=== PATIENT | male | born 1950 | race Caucasian/White ===

== ENCOUNTER → 2018-12-12 15:46 | Outpatient (CLI) | payer MEDICARE, SELFPAY ==
--- NOTE | 2018-12-12 | DI.RAD.S_ITS ---
PROCEDURE: XR HAND LT MIN 3V INDICATIONS: LEFT HAND PAIN TECHNIQUE: 3 views of the hand(s) acquired. COMPARISON: None. FINDINGS: Bones: No fractures or dislocations. Carpal bones are normally aligned. No suspicious bony lesions. There is mild osteoarthritic changes at the triscaphe joint, the first carpometacarpal joint, the first metacarpophalangeal joint and several interphalangeal joints. Soft tissues: No suspicious soft tissue calcifications. IMPRESSION: Mild osteoarthritis. Dictated by: Amanda Claire M.D. on 12/12/2018 at 17:32 Approved by: Amanda Claire M.D. on 12/12/2018 at 17:33
--- NOTE | 2018-12-12 | DI.RAD.S_ITS ---
PROCEDURE: XR SHOULDER LT MIN 2V INDICATIONS: LEFT SHOULDER PAIN TECHNIQUE: 3 views of the shoulder were acquired. COMPARISON: [facility], CR, XR SHOULDER RT MIN 2V, 12/12/2018, 15:59. None. FINDINGS: Bones: No acute fractures or dislocations. No suspicious bony lesions. There is severe glenohumeral joint and mild acromioclavicular joint degeneration. Visualized ribs appear intact. Soft tissues: No suspicious soft tissue calcifications. IMPRESSION: Degenerative joint disease, severe at the glenohumeral joint. Dictated by: Amanda Claire M.D. on 12/12/2018 at 17:22 Approved by: Amanda Claire M.D. on 12/12/2018 at 17:24
--- NOTE | 2018-12-12 | DI.RAD.S_ITS ---
PROCEDURE: XR SHOULDER RT MIN 2V INDICATIONS: RIGHT SHOULDER PAIN TECHNIQUE: 3 views of the shoulder were acquired. COMPARISON: None. FINDINGS: Bones: No fractures or dislocations. No suspicious bony lesions. There is severe glenohumeral joint and moderate acromioclavicular joint degeneration. Visualized ribs appear intact. Soft tissues: A ossicle is noted in the shoulder area, which may be a large intra-articular body IMPRESSION: 1. Severe degenerative joint disease of the glenohumeral joint and moderate degenerative joint disease of the acromioclavicular joint. 2. Suspected a large intra-articular body. If clinical symptoms persist, MRI is suggested for further evaluation. Dictated by: Amanda Claire M.D. on 12/12/2018 at 17:24 Approved by: Amanda Claire M.D. on 12/12/2018 at 17:27
--- NOTE | 2018-12-12 | DI.RAD.S_ITS ---
PROCEDURE: XR CERVICAL SPINE 4V OR 5V INDICATIONS: CERVICALGIA TECHNIQUE: 5 views of the cervical spine acquired. COMPARISON: None. FINDINGS: Bones: No fractures or dislocations to the T1 level. There is [id number] degenerative disc disease at C3-C4, C4-C5, C5-C6 and C6-C7. There is facet arthropathy bilaterally, most pronounced and severe at C2-C3 and C3-C4 on the right. Oblique images demonstrate multilevel foraminal stenoses C 3-C4, C4-C5, C5-C6 and C6-C7 bilaterally. Soft tissues: No prevertebral soft tissue swelling. IMPRESSION: 1. 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 2. Multilevel foraminal stenoses in cervical spine. If clinical symptoms persist or clinical suspicion for nerve root impingement is high, MRI is suggested for further evaluation. Dictated by: Amanda Claire M.D. on 12/12/2018 at 17:17 Approved by: Amanda Claire M.D. on 12/12/2018 at 17:19
== END ==
PROVIDERS: PCP Student in an Organized Health Care Education/Training Program; Visit Provider Student in an Organized Health Care Education/Training Program
DX: M25.511 Pain in right shoulder (principal); M25.512 Pain in left shoulder; M50.31 Other cervical disc degeneration, high cervical region; M48.02 Spinal stenosis, cervical region; M47.812 Spondylosis without myelopathy or radiculopathy, cervical region; M19.012 Primary osteoarthritis, left shoulder; M19.011 Primary osteoarthritis, right shoulder; M19.042 Primary osteoarthritis, left hand
CPT/HCPCS: 72050; 73030; 73130

== ENCOUNTER → 2019-07-16 14:55 | Outpatient (CLI) | payer MEDICARE, SELFPAY ==
--- NOTE | 2019-07-16 | DI.ECHO.S_ITS ---
[facility] +---------+ : : [address] : : : : [id number] : : : : Phone: [phone]+ Echocardiogram Report + + :Name: MITUL CARPIO Study Date: 07/16/2019 Height: 68 in : :[facility] Exam Location: IS Weight: 146 lb : : Gender: Male BSA: 1.8 m2 : :: 1950 Age: 68 yrs BP: 114/65 mmHg: :Reason For Study: MVP : : Performed By: Shashi Cortes : :Referring: PRESTON POTTER : + + Interpretation Summary 1) Upper normal left ventricular size with normal wall motion, and normal systolic function (EF 60-65%). 2) Normal right ventricular size and function. 3) The left atrium is severely dilated. 4) There is prolapse of the posterior mitral valve leaflet(s). 5) Severe eccentric mitral regurgitation that is directed anteriorly. 6) The right ventricular systolic pressure is estimated to be at least 22 mmHg based on an estimated right atrial pressure of 3 mm Hg. 7) Compared to the Echo done 12/30/2018, no significant change. Procedure: A two-dimensional transthoracic echocardiogram with color flow and Doppler was performed. The study quality was technically good. Comparison is made with the echocardiogram of 2/18/19. The patient was in normal sinus rhythm during the exam. The patient experienced a run of tachycardia during the exam with a heart rate in the 120s. Left Ventricle: There is normal left ventricular wall thickness. The left ventricle is mildly dilated. The ejection fraction is estimated to be 60-65%. There are no focal wall motion abnormalities. Right Ventricle: The right ventricle is normal in size and function. Atria: The left atrium is severely dilated. The right atrium is mildly dilated. The interatrial septum is intact with no evidence for an atrial septal defect. Mitral Valve: The mitral valve leaflets appear mildly thickened, but open well. There is prolapse of the posterior mitral valve leaflet(s). There is severe mitral regurgitation. The mitral regurgitant jet is eccentrically directed. Flow reversal noted in pulmonary veins consistent with significant mitral regurgitation. Aortic Valve: The aortic valve is trileaflet. The aortic valve opens well. There is no aortic valve stenosis. There is trace aortic regurgitation. Tricuspid Valve: The tricuspid valve is normal in structure and function. There is trace tricuspid regurgitation. The right ventricular systolic pressure is estimated to be at least 22 mmHg based on an estimated right atrial pressure of 3 mm Hg. Pulmonic Valve: The pulmonic valve is normal in structure and function. There is trace pulmonic regurgitation. Great Vessels: The aortic root is normal size. The dimensions of the ascending aorta are normal. The pulmonary artery is normal size. Pericardium/ Pleura There is no pericardial effusion. There is no pleural effusion. MMode/2D Measurements & Calculations LVIDd: 5.8 cm LVOT diam: 2.2 cm LVIDs: 3.6 cm Ao root diam: 3.4 cm FS: 38.0 % Aortic Jxn: 2.9 cm EPSS: 0.59 cm asc Aorta Diam: 3.8 cm IVSd: 0.89 cm Ao Arch Diam (Prox Trans): 2.9 cm LVPWd: 0.83 cm LV fuentes. diameter/BSA (cm/m^2): 3.3 LV sys. diameter/BSA (cm/m^2): 2.0 LA dimension: 4.6 cm RA long axis: 5.3 cm LA A2 area: 37.2 cm2 RA area: 20.6 cm2 LA A4 area: 33.7 cm2 RA vol: 68.3 ml LA length (vol): 7.4 cm RA : 38.2 ml/m2 LA vol: 144.8 ml IVC diam: 1.8 cm LA vol index: 81.0 ml/m2 Doppler Measurements & Calculations Ao V2 max: 138.1 cm/sec LVOT Max Phani: 106.9 cm/sec Ao V2 mean: 86.8 cm/sec LV V1 max P.6 mmHg Ao max P.6 mmHg LV V1 VTI: 22.0 cm Ao mean P.7 mmHg PILI(I,D): 3.1 cm2 Ao V2 VTI: 27.0 cm PILI(V,D): 2.9 cm2 sev ratio: 0.81 PILI indexed to BSA (cm^2/m^2): 1.7 MV E max phani: 78.9 cm/sec TR max phani: 218.8 cm/sec MV A max phani: 39.7 cm/sec TR max P.1 mmHg MV E/A: 2.0 PA V2 max: 58.1 cm/sec Med Peak E' Phani: 6.3 cm/sec PA V2 mean: 44.7 cm/sec E/E' med: 12.5 PA mean P.85 mmHg Lat Peak E' Phani: 4.6 cm/sec PA pr(Accel): 21.6 mmHg E/E' lat: 17.0 PA Accel Time: 0.11 sec E/e' average: 14.8 MV dec time: 0.20 sec SV([facility]): 82.7 ml Reading Physician:10:38 AM
== END ==
PROVIDERS: Family Provider Student in an Organized Health Care Education/Training Program; PCP Student in an Organized Health Care Education/Training Program; Visit Provider Internal Medicine Cardiovascular Disease
DX: I34.1 Nonrheumatic mitral (valve) prolapse (principal); I34.0 Nonrheumatic mitral (valve) insufficiency
CPT/HCPCS: 93306

== ENCOUNTER → 2020-01-20 14:44 | Outpatient (CLI) | payer MEDICARE, SELFPAY ==
--- NOTE | 2020-01-20 | DI.ECHO.S_ITS ---
[facility]---------+ [facility] +---------+ : : [address] : : : : [id number] : : : : Phone: [phone]+ Echocardiogram Report + + :Name: MITUL CARPIO Study Date: 01/20/2020 Height: 68 in : :[facility] Weight: 149 lb : : Gender: Male BSA: 1.8 m2 : :: 1950 Age: 69 yrs BP: 138/80 mmHg: :Reason For Study: Mitral Insufficiency : :Ordering Physician: Preston Segura : :[place] Performed By: Mara Gleason : :Referring: PRESTON POTTER : + + Interpretation Summary 1) Upper normal left ventricular size with normal wall motion, and normal systolic function (EF 60-65%). 2) Normal right ventricular size and function. 3) The left atrium is severely dilated. 4) There is prolapse of the posterior mitral valve leaflet(s). 5) Severe eccentric mitral regurgitation that is directed anteriorly. 6) The right ventricular systolic pressure is estimated to be at least 35 mmHg based on an estimated right atrial pressure of 3 mm Hg. 7) Compared to the Echo done 07/16/2019, mild pulmonary hypertension is present on this study. Procedure: A two-dimensional transthoracic echocardiogram with color flow and Doppler was performed. The study quality was technically adequate. Comparison is made with the echocardiogram of 07/16/2019. The patient was in normal sinus rhythm during the exam. Left Ventricle: The left ventricle is normal in size and wall thickness. The ejection fraction is estimated to be 60-65%. Left ventricular wall motion is normal. Right Ventricle: The right ventricle is normal in size and function. Atria: The left atrium is severely dilated. The right atrium is moderately dilated. There is no Doppler evidence for an interatrial shunt. Mitral Valve: The mitral valve leaflets appear mildly thickened, but open well. There is prolapse of the posterior mitral valve leaflet(s). The mitral regurgitant jet is eccentrically directed. There is moderate mitral regurgitation. Aortic Valve: The aortic valve is trileaflet. The aortic valve opens well. There is no aortic valve stenosis. There is trace aortic regurgitation. Tricuspid Valve: The tricuspid valve is normal in structure and function. There is trace tricuspid regurgitation. The right ventricular systolic pressure is estimated to be at least 35 mmHg based on an estimated right atrial pressure of 3 mm Hg. Pulmonic Valve: The pulmonic valve is not well seen, but is grossly normal. There is mild pulmonic regurgitation. Great Vessels: The aortic root is normal size. The ascending aorta is at the upper limits of normal in size. The IVC is of normal diameter and collapses greater than 50% with a sniff. This suggests a low right atrial pressure of 3 mm Hg. Pericardium/ Pleura There is no pericardial effusion. There is no pleural effusion. MMode/2D Measurements & Calculations LVIDd: 5.2 cm LVOT diam: 2.2 cm LVIDs: 3.6 cm Ao root diam: 3.4 cm FS: 30.7 % asc Aorta Diam: 3.4 cm EPSS: 0.72 cm Ao Arch Diam (Prox Trans): 2.3 cm IVSd: 0.99 cm LVPWd: 1.0 cm LV fuentes. diameter/BSA (cm/m^2): 2.9 LV sys. diameter/BSA (cm/m^2): 2.0 LA A2 area: 33.1 cm2 RA long axis: 5.6 cm LA A4 area: 24.9 cm2 RA area: 23.0 cm2 LA length (vol): 6.0 cm RA vol: 80.2 ml LA vol: 116.8 ml RA : 44.4 ml/m2 LA vol index: 64.8 ml/m2 IVC diam: 1.5 cm RVD1 (basal): 3.2 cm TAPSE: 2.7 cm Doppler Measurements & Calculations Ao V2 max: 142.2 cm/sec LVOT Max Phani: 113.7 cm/sec Ao V2 mean: 89.7 cm/sec LV V1 max P.2 mmHg Ao max P.1 mmHg LV V1 VTI: 17.7 cm Ao mean P.8 mmHg PILI(I,D): 2.6 cm2 Ao V2 VTI: 25.1 cm PILI(V,D): 2.9 cm2 sev ratio: 0.70 PILI indexed to BSA (cm^2/m^2): 1.4 MV A max phani: 55.4 cm/sec TR max phani: 314.3 cm/sec Med Peak E' Phani: 57.0 cm/sec TR max P.5 mmHg Lat Peak E' Phani: 13.2 cm/sec PA V2 max: 72.2 cm/sec MV dec time: 0.16 sec PA V2 mean: 52.2 cm/sec MV P1/2t: 48.0 msec PA mean P.2 mmHg MVA(VTI): 2.8 cm2 PA Accel Time: 0.07 sec MR ERO: 0.35 cm2 MV V2 mean: 61.0 cm/sec MV P1/2t max phani: 102.0 cm/sec MV mean P.7 mmHg MVA(P1/2t): 4.6 cm2 MV V2 VTI: 23.2 cm MR PISA: 5.2 cm2 SV(LVOT): 64.6 ml MR flow rate: 193.5 cm3/sec MR PISA radius: 0.91 cm Reading Physician:08:14 AM
== END ==
PROVIDERS: Family Provider Student in an Organized Health Care Education/Training Program; PCP Student in an Organized Health Care Education/Training Program; Referring Provider Internal Medicine Cardiovascular Disease; Visit Provider Internal Medicine Cardiovascular Disease
DX: I34.0 Nonrheumatic mitral (valve) insufficiency (principal); I37.1 Nonrheumatic pulmonary valve insufficiency
CPT/HCPCS: 93306